=== PATIENT | female | born 1940 | race African-American/Black ===

== ENCOUNTER 2021-10-12 19:02 | Inpatient (IN) | payer OTHER, BC ==
[2021-10-12 19:35] VITALS: BMI 22.9
[2021-10-12 21:09] LABS: EPI CELLS 9 /uL (0-25.1); HYALINE CASTS 1 /uL (0-3.1); PH,URINE 5.5 (5.0-8.0); URINE APPEARANCE CLEAR; URINE BACTERIA 47 /uL (0-1359); URINE BILIRUBIN NEGATIVE (NEGATIVE); URINE COLOR YELLOW; URINE GLUCOSE (UA) NEGATIVE (NEGATIVE); URINE KETONE TRACE (NEGATIVE); URINE LEUK ESTERASE NEGATIVE (NEGATIVE); URINE NITRITE NEGATIVE (NEGATIVE); URINE PROTEIN NEGATIVE (NEGATIVE); URINE UROBILINOGEN 0.2 mg/dL (0.2-1.0); URINE WBC 18 /uL (0-25.8)
[2021-10-12 21:37] LABS: BASO % 3.5 % (0-2.0); EOS % 2.2 % (0-4.5); HEMATOCRIT 41.3 % (32.4-45.2); HEMOGLOBIN 13.4 GM/dL (10.7-15.3); LYMPH % 28.7 % (8-40); MCH 27.6 pg (25.7-33.7); MCHC 32.4 g/dl (32.0-36.0); MEAN CELL VOLUME 85.3 fl (80-96); MEAN PLT VOLUME 7.4 fl (7.5-11.1); MONO % 10.9 % (3.8-10.2); NEUT % 54.7 % (42.8-82.8); PLATELET COUNT 244 10^3/uL (134-434); RBC 4.85 M/mm3 (3.60-5.2); RDW 13.7 % (11.6-15.6); WHITE BLOOD COUNT 3.1 K/mm3 (4.0-10.0)
[2021-10-12 21:44] LABS: INR 1.53 (0.83-1.09); PROTHROMBIN TIME (PATIENT) 17.7 SEC (9.7-13.0)
[2021-10-12 21:46] LABS: ACTIVATED PTT 38.4 SECONDS (25.2-36.5)
[2021-10-12 21:55] LABS: URINE RBC 39.9 /uL (0-23.9); YEAST MODERATE (NEGATIVE)
[2021-10-12 22:04] LABS: ANISOCYTOSIS 1+; MACROCYTOSIS 0; PLATELET ESTIMATE NORMAL; TEAR DROP CELLS 1+
[2021-10-12 22:08] LABS: CHLORIDE 108 mmol/L (98-107); SODIUM 143 mmol/L (136-145)
[2021-10-12] MEDS: FOLIC ACID INJECTION - 1 MG, THIAMINE HCL 100 MG, MULTIVIT INJECTION ADULT 10 ML in SOD... IVPB ONE ×2 (22:08→22:17)
[2021-10-12 22:11] LABS: CALCIUM 9.7 mg/dL (8.5-10.1)
[2021-10-12 22:12] LABS: ALBUMIN 3.5 g/dl (3.4-5.0); ANION GAP 5 MMOL/L (8-16); BLOOD UREA NITROGEN 19.6 mg/dL (7-18); CO2 30 mmol/L (21-32); GLUCOSE,RANDOM 97 mg/dL (74-106)
[2021-10-12 22:15] LABS: SGOT/AST 14 U/L (15-37); SGPT/ALT 15 U/L (13-61)
[2021-10-12 22:16] LABS: BILIRUBIN,TOTAL 0.6 mg/dL (0.2-1)
[2021-10-12 22:18] LABS: ALK PHOS 78 U/L (45-117)
[2021-10-12 22:20] LABS: N-TERMINAL BNP 111.1 pg/ml (5-450)
[2021-10-13 01:56] VITALS: TEMP 97.5
[2021-10-13] MEDS: FOLIC ACID INJECTION - 1 MG, THIAMINE HCL 100 MG, MULTIVIT INJECTION ADULT 10 ML in SOD... IVPB ONE (02:22)
[2021-10-13] MEDS ORDERED: FLUCONAZOLE 200 MG/NS 100 ML IVPB ONE (03:25)
[2021-10-13] MEDS ORDERED: SODIUM CHLORIDE 1,000 ML IV SCH (05:00)
[2021-10-13 06:33] LABS: BASO % 1.1 % (0-2.0); EOS % 2.1 % (0-4.5); HEMATOCRIT 43.4 % (32.4-45.2); HEMOGLOBIN 13.8 GM/dL (10.7-15.3); LYMPH % 27.1 % (8-40); MCH 27.3 pg (25.7-33.7); MCHC 31.7 g/dl (32.0-36.0); MEAN PLT VOLUME 8.1 fl (7.5-11.1); MONO % 9.2 % (3.8-10.2); NEUT % 60.5 % (42.8-82.8); PLATELET COUNT 247 10^3/uL (134-434); RBC 5.05 M/mm3 (3.60-5.2); RDW 13.7 % (11.6-15.6); WHITE BLOOD COUNT 4.1 K/mm3 (4.0-10.0)
[2021-10-13 07:35] LABS: CHLORIDE 111 mmol/L (98-107); SODIUM 143 mmol/L (136-145)
[2021-10-13 07:36] LABS: ALBUMIN 3.6 g/dl (3.4-5.0)
[2021-10-13 07:37] LABS: ANION GAP 9 MMOL/L (8-16); BLOOD UREA NITROGEN 14.8 mg/dL (7-18); CALCIUM 9.2 mg/dL (8.5-10.1); CO2 23 mmol/L (21-32); GLUCOSE,RANDOM 79 mg/dL (74-106)
[2021-10-13 07:38] LABS: MAGNESIUM 2.2 mg/dL (1.8-2.4)
[2021-10-13 07:40] LABS: PHOSPHOROUS 3.2 mg/dL (2.5-4.9)
[2021-10-13 07:41] LABS: CREATININE 0.7 mg/dL (0.55-1.3); SGOT/AST 17 U/L (15-37); SGPT/ALT 14 U/L (13-61)
[2021-10-13 07:42] LABS: BILIRUBIN,TOTAL 0.5 mg/dL (0.2-1); TOT PROT 7.2 g/dl (6.4-8.2)
[2021-10-13 07:43] LABS: ALK PHOS 79 U/L (45-117)
[2021-10-13] MEDS ORDERED: PANTOPRAZOLE SODIUM 40 MG/100 ML BAG IVPB ONE (08:07)
[2021-10-13] MEDS ORDERED: PANTOPRAZOLE SODIUM 40 MG VIAL IVPUSH SCH (10:00)
[2021-10-13] MEDS ORDERED: amLODIPine BESYLATE 5 MG TABLET (FP) PO SCH (10:00)
[2021-10-13] MEDS ORDERED: amLODIPine BESYLATE 5 MG TABLET (FP) ONE (11:01)
[2021-10-13 15:50] VITALS: BP 117/62; PULSE 60
== END 2021-10-13 15:56 | disposition home or self-care (01) | DRG 57 ==
LOC: JER 19:02 → JERBED 23:41
PROVIDERS: ADMIT Internal Medicine
DX: G30.9 Alzheimer's disease, unspecified (principal); I45.2 Bifascicular block; F02.80 Dementia in other diseases classified elsewhere, unspecified severity, without behavioral disturbance, psychotic disturbance, mood disturbance, and anxiety; R00.1 Bradycardia, unspecified; D86.9 Sarcoidosis, unspecified; R62.7 Adult failure to thrive; Z68.22 Body mass index [BMI] 22.0-22.9, adult; I10 Essential (primary) hypertension; F32.A Depression, unspecified; H40.9 Unspecified glaucoma; E78.5 Hyperlipidemia, unspecified; R31.9 Hematuria, unspecified; Z86.718 Personal history of other venous thrombosis and embolism; Z86.711 Personal history of pulmonary embolism
CPT/HCPCS: 36415; 70450-TC; 71045-TC-FY; 80053; 81003; 82550; 83735; 83880; 84100; 84484; 85025; 85610; 85730; 86850; 86900; 86901; 87086; 87804; 93005; 93010; 99285-25; C9803; U0003; U0005

== ENCOUNTER 2021-11-26 15:18 | Emergency (ER) | payer OTHER, BC ==
[2021-11-26 15:47] VITALS: BP 155/80; PULSE 58; TEMP 98; BMI 22.3
[2021-11-26] MEDS ORDERED: ACETAMINOPHEN 500 MG TABLET (FP) PO ONE (16:58)
[2021-11-26] MEDS ORDERED: ACETAMINOPHEN 325 MG TABLET (FP) ONE (17:10)
[2021-11-26 18:10] LABS: EPI CELLS 11 /uL (0-25.1); HYALINE CASTS 2 /uL (0-3.1); URINE APPEARANCE CLOUDY; URINE BACTERIA 245 /uL (0-1359); URINE BILIRUBIN NEGATIVE (NEGATIVE); URINE COLOR YELLOW; URINE GLUCOSE (UA) NEGATIVE (NEGATIVE); URINE KETONE NEGATIVE (NEGATIVE); URINE LEUK ESTERASE 1+ (NEGATIVE); URINE NITRITE NEGATIVE (NEGATIVE); URINE PROTEIN NEGATIVE (NEGATIVE); URINE RBC 16 /uL (0-23.9); URINE UROBILINOGEN 0.2 mg/dL (0.2-1.0); URINE WBC 283 /uL (0-25.8)
[2021-11-26] MEDS ORDERED: LIDOCAINE 5% TOPICAL PATCH TP ONE (18:28)
[2021-11-26] MEDS ORDERED: LIDOCAINE 5% TOPICAL PATCH ONE (18:54)
[2021-11-26] MEDS ORDERED: LIDOCAINE PATCH REMOVAL MC SCH (22:00)
== END 2021-11-26 20:12 | disposition home or self-care (01) ==
LOC: JER 15:18
DX: M54.50 Low back pain, unspecified (principal); N39.0 Urinary tract infection, site not specified; W10.9XXA Fall (on) (from) unspecified stairs and steps, initial encounter
CPT/HCPCS: 71045-TC-FY; 72170-TC-FY; 73030-TC-RT-FY; 73070-TC-RT-FY; 81003; 87086; 87186; 93005; 93010; 99285-25

== ENCOUNTER 2022-09-23 06:21 | Emergency (ER) | payer OTHER, BC ==
[2022-09-23 07:13] VITALS: BMI 20.2
[2022-09-23 09:56] LABS: BASO % 0.7 % (0-2.0); EOS % 0.9 % (0-4.5); HEMATOCRIT 45.8 % (32.4-45.2); HEMOGLOBIN 14.6 GM/dL (10.7-15.3); MCH 27.2 pg (25.7-33.7); MEAN CELL VOLUME 85.1 fl (80-96); MEAN PLT VOLUME 8.3 fl (7.5-11.1); MONO % 10.7 % (3.8-10.2); NEUT % 62.7 % (42.8-82.8); PLATELET COUNT 349 10^3/uL (134-434); RBC 5.38 M/mm3 (3.60-5.2); RDW 14.1 % (11.6-15.6); WHITE BLOOD COUNT 5.3 K/mm3 (4.0-10.0)
[2022-09-23 10:11] LABS: PH,URINE 8.5 (5.0-8.0); URINE APPEARANCE CLOUDY; URINE BILIRUBIN NEGATIVE (NEGATIVE); URINE COLOR YELLOW; URINE GLUCOSE (UA) NEGATIVE (NEGATIVE); URINE KETONE NEGATIVE (NEGATIVE); URINE LEUK ESTERASE NEGATIVE (NEGATIVE); URINE NITRITE NEGATIVE (NEGATIVE); URINE PROTEIN NEGATIVE (NEGATIVE); URINE UROBILINOGEN 0.2 mg/dL (0.2-1.0)
[2022-09-23 10:14] LABS: ALBUMIN 3.1 g/dl (3.4-5.0); BLOOD UREA NITROGEN 20.6 mg/dL (7-18); CALCIUM 10.2 mg/dL (8.5-10.1)
[2022-09-23 10:17] LABS: CREATININE 0.8 mg/dL (0.55-1.3)
[2022-09-23 10:19] LABS: BILIRUBIN,TOTAL 0.6 mg/dL (0.2-1); TOT PROT 7.2 g/dl (6.4-8.2)
[2022-09-23 10:23] LABS: LACTIC ACID 2.5 mmol/L (0.4-2.0)
[2022-09-23] MEDS ORDERED: SODIUM CHLORIDE 1,000 ML IV ONE (11:02)
[2022-09-23 11:14] LABS: INR 1.44 (0.83-1.09); PROTHROMBIN TIME (PATIENT) 16.6 SEC (9.7-13.0)
[2022-09-23 11:17] LABS: ACTIVATED PTT 38.2 SECONDS (25.2-36.5)
[2022-09-23 17:17] VITALS: BP 132/82; PULSE 68; RESP 16; TEMP 98.3
== END 2022-09-23 16:35 | disposition home or self-care (01) ==
LOC: JER 06:21
DX: R10.30 Lower abdominal pain, unspecified (principal); G30.9 Alzheimer's disease, unspecified
CPT/HCPCS: 0241U-QW; 36415; 71045-TC-FY; 72170-TC-FY; 73502-TC-LT-FY; 74177-TC; 80053; 81003; 83605; 85025; 85610; 85730; 87086; 93005; 93010; 99285-25; Q9967

== ENCOUNTER 2022-10-04 15:07 | Inpatient (IN) | payer OTHER, BC ==
[2022-10-04] MEDS ORDERED: ACETAMINOPHEN 1000 MG/100 ML BAG IVPB ONE (16:26)
[2022-10-04] MEDS ORDERED: LIDOCAINE HCL 2% (20ML MULTI-DOSE VIAL) ONE (17:41)
[2022-10-04] MEDS ORDERED: ACETAMINOPHEN INJECTION 100 ML IVPB ONE (17:54)
[2022-10-04 18:16] LABS: BASO % 0.9 % (0-2.0); EOS % 0.6 % (0-4.5); HEMATOCRIT 41.7 % (32.4-45.2); HEMOGLOBIN 13.6 GM/dL (10.7-15.3); LYMPH % 13.3 % (8-40); MCH 27.3 pg (25.7-33.7); MCHC 32.6 g/dl (32.0-36.0); MEAN CELL VOLUME 83.8 fl (80-96); MEAN PLT VOLUME 7.5 fl (7.5-11.1); MONO % 10.6 % (3.8-10.2); NEUT % 74.6 % (42.8-82.8); PLATELET COUNT 355 10^3/uL (134-434); RBC 4.97 M/mm3 (3.60-5.2); RDW 13.7 % (11.6-15.6); WHITE BLOOD COUNT 8.8 K/mm3 (4.0-10.0)
[2022-10-04 18:26] LABS: INR 1.49 (0.83-1.09); PROTHROMBIN TIME (PATIENT) 17.2 SEC (9.7-13.0)
[2022-10-04 18:29] LABS: ACTIVATED PTT 36.1 SECONDS (25.2-36.5)
[2022-10-04 18:33] LABS: BLOOD UREA NITROGEN 20.5 mg/dL (7-18)
[2022-10-04 18:36] LABS: CREATININE 0.8 mg/dL (0.55-1.3)
[2022-10-04 18:37] LABS: BILIRUBIN,TOTAL 0.5 mg/dL (0.2-1); TOT PROT 7.1 g/dl (6.4-8.2)
[2022-10-04 20:18] LABS: BF WBC & OTHER NUCLEATED CELLS 1374 /mm3
[2022-10-04] MEDS ORDERED: SERTRALINE HCL 25 MG TABLET (FP) PO ONE (21:02)
[2022-10-04] MEDS ORDERED: ATORVASTATIN CA 10 MG TABLET (FP) PO ONE (21:02)
[2022-10-04] MEDS ORDERED: MEMANTINE HCL 5 MG TABLET (UD) PO ONE (21:03)
[2022-10-04] MEDS ORDERED: ATORVASTATIN CA 10 MG TABLET (FP) ONE (21:06)
[2022-10-04] MEDS ORDERED: RIVAROXABAN 10 MG TABLET PO ONE (21:50)
[2022-10-04 23:00] LABS: BODY FLUID MONOCYTE 7 %
[2022-10-04 23:01] LABS: BODY FLUID MACROPHAGES 9 %
[2022-10-05] MEDS: METHYL SALICYLATE/MENTHOL OINT 30 GM TUBE TP SCH ×3 (01:06→21:28)
[2022-10-05] MEDS: MEMANTINE HCL 5 MG TABLET (UD) PO SCH (09:29)
[2022-10-05] MEDS: amLODIPine BESYLATE 10 MG TABLET (FP) PO SCH (09:29)
[2022-10-05] MEDS: DONEPEZIL HCL 5 MG TABLET (FP) PO SCH (09:29)
[2022-10-05] MEDS: QUEtiapine FUMARATE 25 MG TABLET PO SCH (09:29)
[2022-10-05 10:43] LABS: BASO % 0.8 % (0-2.0); EOS % 0.6 % (0-4.5); HEMATOCRIT 41.4 % (32.4-45.2); HEMOGLOBIN 13.8 GM/dL (10.7-15.3); LYMPH % 20.2 % (8-40); MCH 28.1 pg (25.7-33.7); MCHC 33.3 g/dl (32.0-36.0); MEAN CELL VOLUME 84.5 fl (80-96); MONO % 10.3 % (3.8-10.2); NEUT % 68.1 % (42.8-82.8); PLATELET COUNT 332 10^3/uL (134-434); RBC 4.91 M/mm3 (3.60-5.2); RDW 13.8 % (11.6-15.6); WHITE BLOOD COUNT 5.8 K/mm3 (4.0-10.0)
[2022-10-05 10:48] LABS: CHLORIDE 106 mmol/L (98-107); SODIUM 141 mmol/L (136-145)
[2022-10-05 10:51] LABS: ALBUMIN 2.7 g/dl (3.4-5.0); ANION GAP 5 MMOL/L (8-16); CALCIUM 9.6 mg/dL (8.5-10.1); CO2 31 mmol/L (21-32)
[2022-10-05 10:52] LABS: BLOOD UREA NITROGEN 19.5 mg/dL (7-18); GLUCOSE,RANDOM 83 mg/dL (74-106); MAGNESIUM 2.2 mg/dL (1.8-2.4)
[2022-10-05 10:54] LABS: CREATININE 0.7 mg/dL (0.55-1.3); PHOSPHOROUS 3.9 mg/dL (2.5-4.9); SGPT/ALT 14 U/L (13-61)
[2022-10-05 10:55] LABS: SGOT/AST 10 U/L (15-37)
[2022-10-05 10:56] LABS: BILIRUBIN,TOTAL 0.5 mg/dL (0.2-1); TOT PROT 6.7 g/dl (6.4-8.2)
[2022-10-05 10:57] LABS: ALK PHOS 86 U/L (45-117)
[2022-10-05 11:08] LABS: URIC ACID 2.7 mg/dL (2.6-7.2)
[2022-10-05 13:16] LABS: ERYTHROCYTE SEDIMENTATION RATE 65 mm/hr (0-30)
[2022-10-05] MEDS: RIVAROXABAN 10 MG TABLET PO SCH (17:50)
[2022-10-05] MEDS ORDERED: RIVAROXABAN 10 MG TABLET PO ONE ×2 (21:02→21:45)
[2022-10-05] MEDS: SERTRALINE HCL 25 MG TABLET (FP) PO SCH (21:25)
[2022-10-05] MEDS: ATORVASTATIN CA 10 MG TABLET (FP) PO SCH (21:25)
[2022-10-06] MEDS: amLODIPine BESYLATE 10 MG TABLET (FP) PO SCH (10:04)
[2022-10-06] MEDS: DONEPEZIL HCL 5 MG TABLET (FP) PO SCH (10:04)
[2022-10-06] MEDS: MEMANTINE HCL 5 MG TABLET (UD) PO SCH (10:04)
[2022-10-06] MEDS: QUEtiapine FUMARATE 25 MG TABLET PO SCH (10:05)
[2022-10-06] MEDS: LISINOPRIL 10 MG TABLET PO SCH ×2 (10:05→22:37)
[2022-10-06] MEDS: METHYL SALICYLATE/MENTHOL OINT 30 GM TUBE TP SCH ×2 (10:11→22:38)
[2022-10-06 12:49] VITALS: BMI 17.6
[2022-10-06] MEDS: RIVAROXABAN 10 MG TABLET PO SCH (17:12)
[2022-10-06 17:27] VITALS: RESP 18
[2022-10-06] MEDS: ATORVASTATIN CA 10 MG TABLET (FP) PO SCH (22:37)
[2022-10-06] MEDS: SERTRALINE HCL 25 MG TABLET (FP) PO SCH (22:37)
[2022-10-07] MEDS: MEMANTINE HCL 5 MG TABLET (UD) PO SCH (10:06)
[2022-10-07] MEDS: LISINOPRIL 10 MG TABLET PO SCH ×2 (10:06→21:25)
[2022-10-07] MEDS: DONEPEZIL HCL 5 MG TABLET (FP) PO SCH (10:06)
[2022-10-07] MEDS: amLODIPine BESYLATE 10 MG TABLET (FP) PO SCH (10:06)
[2022-10-07] MEDS: QUEtiapine FUMARATE 25 MG TABLET PO SCH (10:07)
[2022-10-07] MEDS: METHYL SALICYLATE/MENTHOL OINT 30 GM TUBE TP SCH ×2 (10:14→21:27)
[2022-10-07 10:29] LABS: BASO % 0.9 % (0-2.0); HEMATOCRIT 41.1 % (32.4-45.2); HEMOGLOBIN 13.5 GM/dL (10.7-15.3); LYMPH % 16.7 % (8-40); MCH 27.8 pg (25.7-33.7); MEAN CELL VOLUME 84.3 fl (80-96); MEAN PLT VOLUME 7.4 fl (7.5-11.1); MONO % 8.5 % (3.8-10.2); NEUT % 72.9 % (42.8-82.8); PLATELET COUNT 384 10^3/uL (134-434); RBC 4.87 M/mm3 (3.60-5.2); RDW 13.5 % (11.6-15.6); WHITE BLOOD COUNT 5.7 K/mm3 (4.0-10.0)
[2022-10-07 11:10] LABS: BLOOD UREA NITROGEN 20.3 mg/dL (7-18); MAGNESIUM 2.1 mg/dL (1.8-2.4)
[2022-10-07 11:11] LABS: ALBUMIN 2.8 g/dl (3.4-5.0)
[2022-10-07 11:13] LABS: CREATININE 0.7 mg/dL (0.55-1.3)
[2022-10-07 11:14] LABS: BILIRUBIN,TOTAL 0.4 mg/dL (0.2-1); TOT PROT 6.7 g/dl (6.4-8.2)
[2022-10-07] MEDS ORDERED: POTASSIUM CHLORIDE TABS 20 MEQ TABLET.ER (FP) PO ONE (13:04)
[2022-10-07] MEDS ORDERED: LIDOCAINE 5% TOPICAL PATCH TP ONE (14:00)
[2022-10-07] MEDS ORDERED: POTASSIUM CHLORIDE ORAL LIQUID 20 MEQ/15 ML PO ONE (14:00)
[2022-10-07] MEDS: RIVAROXABAN 10 MG TABLET PO SCH ×2 (17:06→17:48)
[2022-10-07] MEDS: SERTRALINE HCL 25 MG TABLET (FP) PO SCH (21:25)
[2022-10-07] MEDS: ATORVASTATIN CA 10 MG TABLET (FP) PO SCH (21:26)
[2022-10-08] MEDS ORDERED: LIDOCAINE PATCH REMOVAL MC SCH (02:00)
[2022-10-08] MEDS: DONEPEZIL HCL 5 MG TABLET (FP) PO SCH (10:13)
[2022-10-08] MEDS: amLODIPine BESYLATE 10 MG TABLET (FP) PO SCH (10:14)
[2022-10-08] MEDS: METHYL SALICYLATE/MENTHOL OINT 30 GM TUBE TP SCH ×2 (10:14→22:27)
[2022-10-08] MEDS: MEMANTINE HCL 5 MG TABLET (UD) PO SCH (10:14)
[2022-10-08] MEDS: QUEtiapine FUMARATE 25 MG TABLET PO SCH ×3 (10:14→22:26)
[2022-10-08] MEDS: LISINOPRIL 10 MG TABLET PO SCH ×2 (10:14→22:26)
[2022-10-08 10:30] LABS: BASO % 0.9 % (0-2.0); EOS % 0.7 % (0-4.5); HEMATOCRIT 37.1 % (32.4-45.2); HEMOGLOBIN 12.1 GM/dL (10.7-15.3); LYMPH % 24.9 % (8-40); MCH 27.8 pg (25.7-33.7); MCHC 32.6 g/dl (32.0-36.0); MEAN CELL VOLUME 85.3 fl (80-96); MONO % 9.3 % (3.8-10.2); NEUT % 64.2 % (42.8-82.8); PLATELET COUNT 493 10^3/uL (134-434); RBC 4.35 M/mm3 (3.60-5.2); RDW 13.9 % (11.6-15.6); WHITE BLOOD COUNT 7.4 K/mm3 (4.0-10.0)
[2022-10-08 11:30] LABS: CALCIUM 9.9 mg/dL (8.5-10.1)
[2022-10-08 11:31] LABS: ALBUMIN 3.1 g/dl (3.4-5.0); MAGNESIUM 2.4 mg/dL (1.8-2.4)
[2022-10-08 11:33] LABS: PHOSPHOROUS 3.6 mg/dL (2.5-4.9)
[2022-10-08 11:34] LABS: CREATININE 0.7 mg/dL (0.55-1.3)
[2022-10-08 11:35] LABS: BILIRUBIN,TOTAL 0.3 mg/dL (0.2-1)
[2022-10-08] MEDS: LIDOCAINE 5% TOPICAL PATCH TP SCH (17:09)
[2022-10-08] MEDS ORDERED: SODIUM CHLORIDE 0.45% 1,000 ML IV SCH (17:30)
[2022-10-08] MEDS: RIVAROXABAN 10 MG TABLET PO SCH (17:42)
[2022-10-08] MEDS: ATORVASTATIN CA 10 MG TABLET (FP) PO SCH (22:26)
[2022-10-08] MEDS: SERTRALINE HCL 25 MG TABLET (FP) PO SCH (22:26)
[2022-10-08] MEDS: LIDOCAINE PATCH REMOVAL MC SCH (22:27)
[2022-10-09] MEDS: LIDOCAINE 5% TOPICAL PATCH TP SCH (09:28)
[2022-10-09] MEDS: METHYL SALICYLATE/MENTHOL OINT 30 GM TUBE TP SCH ×2 (09:30→22:33)
[2022-10-09] MEDS: LISINOPRIL 10 MG TABLET PO SCH ×2 (10:10→22:33)
[2022-10-09] MEDS: amLODIPine BESYLATE 10 MG TABLET (FP) PO SCH (15:05)
[2022-10-09] MEDS: DONEPEZIL HCL 5 MG TABLET (FP) PO SCH (15:05)
[2022-10-09] MEDS: MEMANTINE HCL 5 MG TABLET (UD) PO SCH (15:05)
[2022-10-09] MEDS: RIVAROXABAN 10 MG TABLET PO SCH (18:29)
[2022-10-09 18:32] LABS: CALCIUM 9.6 mg/dL (8.5-10.1)
[2022-10-09 18:33] LABS: BLOOD UREA NITROGEN 39.2 mg/dL (7-18)
[2022-10-09 18:36] LABS: CREATININE 0.7 mg/dL (0.55-1.3)
[2022-10-09] MEDS: ATORVASTATIN CA 10 MG TABLET (FP) PO SCH (22:30)
[2022-10-09] MEDS: QUEtiapine FUMARATE 25 MG TABLET PO SCH (22:30)
[2022-10-09] MEDS: SERTRALINE HCL 25 MG TABLET (FP) PO SCH (22:31)
[2022-10-09] MEDS: LIDOCAINE PATCH REMOVAL MC SCH (22:32)
[2022-10-10 06:43] VITALS: BP 142/58; PULSE 77; TEMP 97.6
[2022-10-10] MEDS: amLODIPine BESYLATE 10 MG TABLET (FP) PO SCH (10:48)
[2022-10-10] MEDS: LISINOPRIL 10 MG TABLET PO SCH (10:48)
[2022-10-10] MEDS: MEMANTINE HCL 5 MG TABLET (UD) PO SCH (10:48)
[2022-10-10] MEDS: LIDOCAINE 5% TOPICAL PATCH TP SCH (10:48)
[2022-10-10] MEDS: DONEPEZIL HCL 5 MG TABLET (FP) PO SCH (10:48)
[2022-10-10] MEDS: METHYL SALICYLATE/MENTHOL OINT 30 GM TUBE TP SCH (11:08)
== END 2022-10-10 13:34 | DRG 564 ==
LOC: JER 15:07 → JERBED 21:50 → J5S 10-05 02:34 → OBSVTOIN 10-07 09:41
PROVIDERS: ADMIT Internal Medicine; ATTEND Internal Medicine
PROC: 0S9D3ZZ Drainage of Left Knee Joint, Percutaneous Approach (ICD-10-PCS; principal; 2022-10-04)
DX: M25.462 Effusion, left knee (principal); E43 Unspecified severe protein-calorie malnutrition; Z68.1 Body mass index [BMI] 19.9 or less, adult; E87.0 Hyperosmolality and hypernatremia; F03.90 Unspecified dementia, unspecified severity, without behavioral disturbance, psychotic disturbance, mood disturbance, and anxiety; E78.5 Hyperlipidemia, unspecified; I10 Essential (primary) hypertension; M17.12 Unilateral primary osteoarthritis, left knee; E86.0 Dehydration; R63.0 Anorexia; R26.2 Difficulty in walking, not elsewhere classified; N28.1 Cyst of kidney, acquired; D86.9 Sarcoidosis, unspecified; E87.6 Hypokalemia; Z86.718 Personal history of other venous thrombosis and embolism
CPT/HCPCS: 0241U-QW; 36415; 71045-TC-FY; 72170-TC-FY; 73502-TC-LT-FY; 73564-TC-LT-FY; 80048; 80053; 82945; 83615; 83735; 83986; 84100; 84157; 84443; 84484; 84550; 84560; 85025; 85610; 85651; 85730; 86038; 86140; 86431; 87070; 87075; 87205; 89060; 93005; 93010; 93971-TC; 97116-GP; 97161-GP; 99285-25; C9803-CS; G0378; U0003; U0005

== ENCOUNTER 2023-12-06 17:20 | Inpatient (IN) | payer OTHER, BC ==
[2023-12-06 19:22] LABS: BASO % 1.1 % (0-2.0); EOS % 0.4 % (0-4.5); HEMATOCRIT 43.7 % (32.4-45.2); HEMOGLOBIN 14.6 GM/dL (10.7-15.3); LYMPH % 16.4 % (8-40); MCHC 33.4 g/dl (32.0-36.0); MEAN CELL VOLUME 86.8 fl (80-96); MEAN PLT VOLUME 7.9 fl (7.5-11.1); MONO % 7.5 % (3.8-10.2); NEUT % 74.6 % (42.8-82.8); PLATELET COUNT 279 10^3/uL (134-434); RBC 5.04 M/mm3 (3.60-5.2); RDW 14.3 % (11.6-15.6); WHITE BLOOD COUNT 4.7 K/mm3 (4.0-10.0)
[2023-12-06 19:27] LABS: INR 1.1 (0.83-1.09); PROTHROMBIN TIME (PATIENT) 12.7 SEC (9.7-13.0)
[2023-12-06 19:30] LABS: ACTIVATED PTT 35.2 SECONDS (25.2-36.5)
[2023-12-06 19:46] LABS: POTASSIUM 3.9 mmol/L (3.5-5.1)
[2023-12-06 19:48] LABS: ALBUMIN 3.7 g/dl (3.4-5.0); BLOOD UREA NITROGEN 20.6 mg/dL (7-18); CALCIUM 10.4 mg/dL (8.5-10.1)
[2023-12-06 19:52] LABS: CREATININE 0.8 mg/dL (0.55-1.3)
[2023-12-06 19:53] LABS: BILIRUBIN,TOTAL 0.6 mg/dL (0.2-1); TOT PROT 7.5 g/dl (6.4-8.2)
[2023-12-06 23:01] LABS: VENOUS BASE EXCESS 0.5 mmol/L (-2-2); VENOUS O2 SATURATION 75.7 % (70-80); VENOUS PCO2 42.3 mmHg (38-52); VENOUS PH 7.398 (7.310-7.410)
[2023-12-06] MEDS ORDERED: ACETAMINOPHEN 325 MG TABLET (FP) PO PRN (23:36)
[2023-12-06] MEDS: LIDOCAINE PATCH REMOVAL MC SCH (23:42)
[2023-12-07] MEDS ORDERED: amLODIPine BESYLATE 10 MG TABLET (FP) ONE (10:44)
[2023-12-07] MEDS: MEMANTINE HCL 5 MG TABLET (UD) PO SCH (10:55)
[2023-12-07] MEDS: amLODIPine BESYLATE 10 MG TABLET (FP) PO SCH (10:55)
[2023-12-07] MEDS: RIVAROXABAN 10 MG TABLET PO SCH (10:55)
[2023-12-07] MEDS: LISINOPRIL 10 MG TABLET PO SCH (10:55)
[2023-12-07] MEDS: LIDOCAINE 5% TOPICAL PATCH TP SCH (10:55)
[2023-12-07 16:05] VITALS: BMI 16.0
[2023-12-07] MEDS: ATORVASTATIN CA 10 MG TABLET (FP) PO SCH (21:30)
[2023-12-07] MEDS: DONEPEZIL HCL 5 MG TABLET (FP) PO SCH (21:30)
[2023-12-07] MEDS: QUEtiapine FUMARATE 25 MG TABLET PO SCH (21:30)
[2023-12-07] MEDS: SERTRALINE HCL 25 MG TABLET (FP) PO SCH (21:30)
[2023-12-10] MEDS: LIDOCAINE 4% PATCH TP SCH (09:52)
[2023-12-10 13:20] LABS: BASO % 1.1 % (0-2.0); EOS % 1.1 % (0-4.5); HEMATOCRIT 43.9 % (32.4-45.2); HEMOGLOBIN 14.2 GM/dL (10.7-15.3); LYMPH % 24.3 % (8-40); MCH 28.5 pg (25.7-33.7); MCHC 32.4 g/dl (32.0-36.0); MEAN CELL VOLUME 88.1 fl (80-96); NEUT % 62.5 % (42.8-82.8); PLATELET COUNT 244 10^3/uL (134-434); RBC 4.98 M/mm3 (3.60-5.2); RDW 14.3 % (11.6-15.6); WHITE BLOOD COUNT 4.1 K/mm3 (4.0-10.0)
[2023-12-10 13:36] LABS: POTASSIUM 3.9 mmol/L (3.5-5.1)
[2023-12-10 13:39] LABS: ALBUMIN 3.2 g/dl (3.4-5.0); BLOOD UREA NITROGEN 30.3 mg/dL (7-18)
[2023-12-10 13:42] LABS: CREATININE 0.8 mg/dL (0.55-1.3)
[2023-12-10 13:44] LABS: BILIRUBIN,TOTAL 0.3 mg/dL (0.2-1); TOT PROT 6.9 g/dl (6.4-8.2)
[2023-12-10] MEDS: SODIUM CHLORIDE 1,000 ML IV SCH (14:41)
[2023-12-10] MEDS: RIVAROXABAN 10 MG TABLET PO SCH (17:27)
[2023-12-11 04:52] VITALS: RESP 18
[2023-12-11 08:56] VITALS: BP 106/50; PULSE 71; TEMP 97.3
== END 2023-12-11 11:41 | DRG 204 ==
LOC: JER 17:20 → JERBED 21:56 → J6S 12-07 15:40 → OBSVTOIN 12-08 10:06
PROVIDERS: ADMIT Internal Medicine; ATTEND Internal Medicine
DX: R06.03 Acute respiratory distress (principal); R64 Cachexia; Z68.1 Body mass index [BMI] 19.9 or less, adult; F02.80 Dementia in other diseases classified elsewhere, unspecified severity, without behavioral disturbance, psychotic disturbance, mood disturbance, and anxiety; G30.9 Alzheimer's disease, unspecified; I10 Essential (primary) hypertension; E78.5 Hyperlipidemia, unspecified; E86.0 Dehydration
CPT/HCPCS: 0241U-QW; 36415; 71045-TC-FY; 80053; 82310; 82607; 82803; 83880; 83970; 84155; 84165; 84439; 84443; 84481; 84484; 85025; 85610; 85730; 93005; 93010; 93306-TC; 94761; 97116-GP; 97162-GP; 99285-25; G0378

== ENCOUNTER 2024-04-15 14:00 | Emergency (ER) | payer OTHER, BC ==
[2024-04-15 14:18] VITALS: RESP 18
[2024-04-15 14:45] VITALS: BP 134/71; PULSE 47; TEMP 97.5; BMI 25.7
[2024-04-15 15:33] LABS: BASO % 1.8 % (0-2.0); EOS % 1.8 % (0-4.5); HEMOGLOBIN 12.9 GM/dL (10.7-15.3); LYMPH % 39.3 % (8-40); MCH 28.4 pg (25.7-33.7); MCHC 33.1 g/dl (32.0-36.0); MEAN CELL VOLUME 85.7 fl (80-96); MEAN PLT VOLUME 7.7 fl (7.5-11.1); MONO % 10.4 % (3.8-10.2); NEUT % 46.7 % (42.8-82.8); PLATELET COUNT 252 10^3/uL (134-434); RBC 4.55 M/mm3 (3.60-5.2); RDW 14.3 % (11.6-15.6); WHITE BLOOD COUNT 3.2 K/mm3 (4.0-10.0)
[2024-04-15 16:06] LABS: POTASSIUM 3.6 mmol/L (3.5-5.1)
[2024-04-15 16:08] LABS: BLOOD UREA NITROGEN 18.9 mg/dL (7-18); CALCIUM 9.3 mg/dL (8.5-10.1)
[2024-04-15 16:09] LABS: ALBUMIN 3.1 g/dl (3.4-5.0)
[2024-04-15 16:11] LABS: CREATININE 0.6 mg/dL (0.55-1.3)
[2024-04-15 16:13] LABS: BILIRUBIN,TOTAL 0.3 mg/dL (0.2-1); TOT PROT 6.6 g/dl (6.4-8.2)
[2024-04-15] MEDS: SODIUM CHLORIDE 500 ML IV STA (16:17)
== END 2024-04-15 19:05 | disposition home or self-care (01) ==
LOC: JER 14:00
PROC: 3E0337Z Introduction of Electrolytic and Water Balance Substance into Peripheral Vein, Percutaneous Approach (ICD-10-PCS; principal; 2024-04-15)
DX: G30.9 Alzheimer's disease, unspecified (principal); F02.818 Dementia in other diseases classified elsewhere, unspecified severity, with other behavioral disturbance; R63.0 Anorexia; Z20.822 Contact with and (suspected) exposure to COVID-19
CPT/HCPCS: 0241U-QW; 36415; 71045-TC-FY; 80053; 82962; 84484; 85025; 93005; 93010; 99285-25

== ENCOUNTER 2024-06-19 18:37 | Inpatient (IN) | payer OTHER, BC ==
[2024-06-19 18:58] VITALS: RESP 18; BMI 22.4
[2024-06-19 20:08] LABS: EOS % 1.2 % (0-4.5); HEMATOCRIT 43.9 % (32.4-45.2); HEMOGLOBIN 14.2 GM/dL (10.7-15.3); LYMPH % 33.3 % (8-40); MCH 28.2 pg (25.7-33.7); MCHC 32.3 g/dl (32.0-36.0); MEAN CELL VOLUME 87.3 fl (80-96); MEAN PLT VOLUME 7.5 fl (7.5-11.1); MONO % 10.3 % (3.8-10.2); NEUT % 54.2 % (42.8-82.8); PLATELET COUNT 259 10^3/uL (134-434); RBC 5.03 M/mm3 (3.60-5.2); RDW 14.8 % (11.6-15.6); WHITE BLOOD COUNT 4.5 K/mm3 (4.0-10.0)
[2024-06-19] MEDS: SODIUM CHLORIDE 0.9% 500 ML INFUS.BAG IV ONE ×2 (20:31→22:47)
[2024-06-19 20:42] LABS: ALBUMIN 3.5 g/dl (3.4-5.0); BILIRUBIN,TOTAL 0.4 mg/dL (0.2-1); BLOOD UREA NITROGEN 25.2 mg/dL (7-18); CALCIUM 9.5 mg/dL (8.5-10.1); CREATININE 0.8 mg/dL (0.55-1.3); MAGNESIUM 2.4 mg/dL (1.8-2.4); POTASSIUM 4.5 mmol/L (3.5-5.1); TOT PROT 7.2 g/dl (6.4-8.2)
[2024-06-19 23:31] LABS: EPI CELLS 11 /uL (0-25.1); HYALINE CASTS 0 /uL (0-3.1); URINE APPEARANCE CLEAR; URINE BACTERIA 8932 /uL (0-1359); URINE BILIRUBIN NEGATIVE (NEGATIVE); URINE COLOR YELLOW; URINE GLUCOSE (UA) NEGATIVE (NEGATIVE); URINE KETONE NEGATIVE (NEGATIVE); URINE LEUK ESTERASE NEGATIVE (NEGATIVE); URINE NITRITE NEGATIVE (NEGATIVE); URINE PROTEIN NEGATIVE (NEGATIVE); URINE RBC 40 /uL (0-23.9); URINE UROBILINOGEN 0.2 mg/dL (0.2-1.0); URINE WBC 2 /uL (0-25.8)
[2024-06-20] MEDS ORDERED: CEFTRIAXONE 1 GM/50 ML BAG ONE (00:07)
[2024-06-20] MEDS ORDERED: ENOXAPARIN NA (PORCINE) 40 MG/0.4 ML DISP.SYRIN SQ SCH (10:00)
[2024-06-20] MEDS: CEFTRIAXONE 1 GM in DEXTROSE 5%-WATER - 50 ML IVPB SCH (10:43)
[2024-06-20] MEDS: amLODIPine BESYLATE 10 MG TABLET (FP) PO SCH (10:43)
[2024-06-20] MEDS: DONEPEZIL HCL 5 MG TABLET (FP) PO SCH (10:43)
[2024-06-20] MEDS: MEMANTINE HCL 5 MG TABLET (UD) PO SCH (10:43)
[2024-06-20 11:54] LABS: HEMATOCRIT 44.2 % (32.4-45.2); HEMOGLOBIN 14.3 GM/dL (10.7-15.3); MCHC 32.4 g/dl (32.0-36.0); MEAN CELL VOLUME 86.4 fl (80-96); MEAN PLT VOLUME 7.8 fl (7.5-11.1); PLATELET COUNT 248 10^3/uL (134-434); RBC 5.12 M/mm3 (3.60-5.2); WHITE BLOOD COUNT 4.2 K/mm3 (4.0-10.0)
[2024-06-20 12:13] LABS: POTASSIUM 3.6 mmol/L (3.5-5.1)
[2024-06-20 12:17] LABS: ALBUMIN 3.3 g/dl (3.4-5.0); BLOOD UREA NITROGEN 15.7 mg/dL (7-18); MAGNESIUM 2.3 mg/dL (1.8-2.4)
[2024-06-20 12:20] LABS: CREATININE 0.7 mg/dL (0.55-1.3); PHOSPHOROUS 2.8 mg/dL (2.5-4.9)
[2024-06-20 12:21] LABS: BILIRUBIN,TOTAL 0.6 mg/dL (0.2-1); TOT PROT 6.9 g/dl (6.4-8.2)
[2024-06-20 15:16] VITALS: BP 115/59; PULSE 66; TEMP 97.8
[2024-06-20] MEDS ORDERED: RIVAROXABAN 10 MG TABLET PO SCH (18:00)
[2024-06-20] MEDS ORDERED: ATORVASTATIN CA 10 MG TABLET (FP) PO SCH (22:00)
[2024-06-20] MEDS ORDERED: QUEtiapine FUMARATE 25 MG TABLET PO SCH (22:00)
== END 2024-06-20 18:13 | disposition home or self-care (01) | DRG 690 ==
LOC: JER 18:37 → JERBED 23:40 → OBSVTOIN 06-20 01:15 → J6S 06-20 06:52
PROVIDERS: ADMIT Internal Medicine; ATTEND Internal Medicine
DX: N39.0 Urinary tract infection, site not specified (principal); E78.5 Hyperlipidemia, unspecified; E86.0 Dehydration; G30.9 Alzheimer's disease, unspecified; I10 Essential (primary) hypertension; D86.9 Sarcoidosis, unspecified; R41.82 Altered mental status, unspecified
CPT/HCPCS: 0241U-QW; 36415; 70450-TC; 71045-TC-FY; 80053; 81003; 82550; 82962; 83605; 83735; 84100; 84484; 85025; 85027; 87086; 87186; 93005; 93010; 99285-25; G0378